=== PATIENT | female | born 1970 | race Caucasian/White ===

== ENCOUNTER → 2018-06-23 | Outpatient (REF) | payer SELFPAY | END | disposition home or self-care (01) | DRG 951 | LOC: LAB 12:40 | DX: Z02.83 Encounter for blood-alcohol and blood-drug test (principal) ==

== ENCOUNTER → 2018-07-07 | Outpatient (REF) | payer SELFPAY | END | disposition home or self-care (01) | DRG 951 | LOC: LAB 13:00 | DX: Z02.83 Encounter for blood-alcohol and blood-drug test (principal) ==

== ENCOUNTER → 2018-07-20 | Outpatient (REF) | payer SELFPAY | END | disposition home or self-care (01) | DRG 951 | LOC: LAB 12:50 | DX: Z02.83 Encounter for blood-alcohol and blood-drug test (principal) ==